=== PATIENT | male | born 1965 | race African-American/Black ===

== ENCOUNTER 2017-03-30 09:41 | Emergency (ER) | payer OTHER ==
[2017-03-30 09:56] LABS: #Basophils 0.1 thou/uL (0.0-0.2); #Eosinphils 0.2 thou/uL (0.0-0.7); #Monocytes 0.7 thou/uL (0.11-0.59); #Neutrophils 4.7 thou/uL (1.40-6.50); %Basophils 1.5 % (0.0-1.0); %Eosinophils 2.1 % (0.0-10.0); %Lymphocytes 34.4 % (21.0-51.0); %Monocytes 8.2 % (0.0-10.0); %Neutrophils 53.9 % (42.0-75.0); Hemoglobin 13.9 g/dL (14.0-18.0); Mean Corpuscular HGB CONC 31.8 g/dL (32.0-36.0); Mean Corpuscular Hemoglobin 28.5 pg (27.0-31.0); Mean Corpuscular Volume 89.4 fl (80.0-94.0); Mean Platelet Volume 6.3 fL (7.4-10.4); Platelet Count 225 thou/uL (130-400); RBC Distribution Width 13.1 % (11.5-14.5); Red Blood Cell (RBC) Count 4.87 mill/uL (4.70-6.10); White Blood Cell (WBC) Count 8.7 thou/uL (4.8-10.8)
[2017-03-30] MEDS ORDERED: Fentanyl 100 MCG/2 ML VIAL ONE (09:58)
[2017-03-30 10:12] LABS: ALT (SGPT) 11 U/L (8-55); AST (SGOT) 14 U/L (5-34); Alkaline Phosphatase 59 U/L (40-150); Anion Gap 14 mmol/L (10-20); BUN (Urea Nitrogen) 12 mg/dL (8.4-25.7); Bilirubin, Total 0.5 mg/dL (0.2-1.2); Calc. Creatinine Clearance 0 mL/min (70-130); Calcium 9.1 mg/dL (7.8-10.44); Carbon Dioxide 28 mmol/L (22-29); Chloride 103 mmol/L (98-107); Estimated GFR-MDRD Greater than 90; Globulin 3.5 g/dL (2.4-3.5); Glucose 128 mg/dL (70-105); Potassium 3.8 mmol/L (3.5-5.1); Protein, Total 7.5 g/dL (6.0-8.3); Sodium 141 mmol/L (136-145)
[2017-03-30 10:25] LABS: Alcohol Less than 10 mg/dL (Less than 10); Lipase 38 U/L (8-78)
[2017-03-30 10:29] LABS: CKMB 0.8 ng/mL (0-6.6)
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
[2017-03-30] MEDS ORDERED: Adacel (T-DAP) 0.5 ML VIAL ONE (11:14)
[2017-03-30] MEDS ORDERED: Ketorolac Tromethamine 30 MG/ML VIAL ONE (11:20)
[2017-03-30 11:47] LABS: Bilirubin Negative (Negative); Blood, Urine Negative (Negative); Clarity Clear (Clear); Glucose, Urine (Dipstick) Negative (Negative); Leukocyte Negative (Negative); Nitrite Negative (Negative); Protein, Urine (Dipstick) Negative (Neg-Trace); Specific Gravity, Urine 1.015 (1.005-1.030); Urobilinogen 0.2 mg/dL (0.2-1.0); pH, Urine 7.5 (5.0-9.0)
[2017-03-30 12:00] LABS: Amphetamine Not Detected (NotDetected); Barbiturates Screen Not Detected (NotDetected); Benzodiazepine Screen Not Detected (NotDetected); Cocaine Metabolite Screen Not Detected (NotDetected); Medtox Control Line Valid? VALID (VALID); Methadone Not Detected (NotDetected); Methamphetamine Not Detected (NotDetected); Opiate Screen Not Detected (NotDetected); Oxycodone Screen Not Detected (NotDetected); Phencyclidine (PCP) Not Detected (NotDetected); THC/Cannabinoid Screen Not Detected (NotDetected); Tricyclic Screen Not Detected (NotDetected)
== END 2017-03-30 12:21 | disposition home or self-care (01) ==
LOC: BURERS 09:41
DX: S06.9X1A Unspecified intracranial injury with loss of consciousness of 30 minutes or less, initial encounter (principal); S70.02XA Contusion of left hip, initial encounter; S60.212A Contusion of left wrist, initial encounter; I10 Essential (primary) hypertension; F41.9 Anxiety disorder, unspecified; F32.9 Major depressive disorder, single episode, unspecified; Z87.891 Personal history of nicotine dependence; Z23 Encounter for immunization; V03.99XA Pedestrian with other conveyance injured in collision with car, pick-up truck or van, unspecified whether traffic or nontraffic accident, initial encounter
CPT/HCPCS: 70450; 71260; 72125; 74177; 80053; 80306; 80307; 81003; 82553; 83690; 85025; 90471; 90715; 93005; 94760; 96361; 96374; 96375; A4216; J1885; J3010

== ENCOUNTER 2017-07-12 19:27 | Emergency (ER) | payer OTHER ==
[2017-07-12] MEDS ORDERED: Ondansetron ODT 4 MG TAB ONE (19:49)
[2017-07-12] MEDS ORDERED: Sucralfate 1 GM TAB PO SCH (20:00)
[2017-07-12 20:06] LABS: Bilirubin Negative (Negative); Blood, Urine Trace (Negative); Clarity Clear (Clear); Glucose, Urine (Dipstick) Negative (Negative); Leukocyte Negative (Negative); Nitrite Negative (Negative); Protein, Urine (Dipstick) Negative (Neg-Trace); Specific Gravity, Urine 1.025 (1.005-1.030); pH, Urine 6.5 (5.0-9.0)
[2017-07-12] MEDS ORDERED: Famotidine 20 MG TAB PO SCH (20:15)
[2017-07-12 20:16] LABS: Bacteria/HPF Rare-Few HPF (None Seen); RBC/HPF 0-3 HPF (0-3); Squamous Epithelial 0-3 HPF (0-3); WBC/HPF 0-3 HPF (0-3)
== END 2017-07-12 20:10 | disposition home or self-care (01) ==
LOC: BURERS 19:27
DX: S30.811A Abrasion of abdominal wall, initial encounter (principal); I10 Essential (primary) hypertension; F32.9 Major depressive disorder, single episode, unspecified; F41.9 Anxiety disorder, unspecified; Z87.891 Personal history of nicotine dependence; Z79.891 Long term (current) use of opiate analgesic; Z79.899 Other long term (current) drug therapy; V89.2XXA Person injured in unspecified motor-vehicle accident, traffic, initial encounter
CPT/HCPCS: 81003; 81015; 99284; Q0162

== ENCOUNTER 2017-07-25 00:58 | Emergency (ER) | payer OTHER | END 2017-07-25 01:25 | disposition home or self-care (01) | LOC: BURERS 00:58 | DX: M54.5 Low back pain (principal); G89.29 Other chronic pain; I10 Essential (primary) hypertension; F41.9 Anxiety disorder, unspecified; F32.9 Major depressive disorder, single episode, unspecified; Z79.899 Other long term (current) drug therapy; Z87.891 Personal history of nicotine dependence | CPT/HCPCS: 99283 ==

== ENCOUNTER 2017-08-14 02:09 | Emergency (ER) | payer OTHER ==
[2017-08-14] MEDS ORDERED: Ketorolac Tromethamine 30 MG/ML VIAL ONE (02:23)
== END 2017-08-14 02:39 | disposition home or self-care (01) ==
LOC: BURERS 02:09
DX: G89.29 Other chronic pain (principal); M54.5 Low back pain; I10 Essential (primary) hypertension; F41.9 Anxiety disorder, unspecified; Z87.891 Personal history of nicotine dependence
CPT/HCPCS: 96372; J1885

== ENCOUNTER 2017-09-02 10:46 | Emergency (ER) | payer OTHER ==
[2017-09-02] MEDS ORDERED: Ketorolac Tromethamine 30 MG/ML VIAL ONE (11:05)
== END 2017-09-02 11:08 | disposition home or self-care (01) ==
LOC: BURERS 10:46
DX: G89.4 Chronic pain syndrome (principal); M54.5 Low back pain; I10 Essential (primary) hypertension; F41.9 Anxiety disorder, unspecified; F32.9 Major depressive disorder, single episode, unspecified; Z87.891 Personal history of nicotine dependence
CPT/HCPCS: 96372; J1885

== ENCOUNTER 2017-09-09 00:25 | Emergency (ER) | payer OTHER ==
[2017-09-09] MEDS ORDERED: Ketorolac Tromethamine 30 MG/ML VIAL ONE (00:44)
== END 2017-09-09 01:01 | disposition home or self-care (01) ==
LOC: BURERS 00:25
DX: M54.5 Low back pain (principal); I10 Essential (primary) hypertension; G10 Huntington's disease; F41.9 Anxiety disorder, unspecified; F32.9 Major depressive disorder, single episode, unspecified; Z87.891 Personal history of nicotine dependence; Z79.891 Long term (current) use of opiate analgesic; Z79.899 Other long term (current) drug therapy
CPT/HCPCS: 96372; J1885

== ENCOUNTER 2017-09-18 02:54 | Emergency (ER) | payer OTHER ==
[2017-09-18] MEDS ORDERED: Ibuprofen 200 MG TAB ONE (03:09)
== END 2017-09-18 03:12 | disposition home or self-care (01) ==
LOC: BURERS 02:54
DX: M54.5 Low back pain (principal); I10 Essential (primary) hypertension; F41.9 Anxiety disorder, unspecified; F32.9 Major depressive disorder, single episode, unspecified; Z79.891 Long term (current) use of opiate analgesic; Z79.899 Other long term (current) drug therapy
CPT/HCPCS: 99283

== ENCOUNTER 2017-09-23 09:42 | Emergency (ER) | payer OTHER ==
[2017-09-23] MEDS ORDERED: Ketorolac Tromethamine 30 MG/ML VIAL ONE (10:12)
== END 2017-09-23 10:25 | disposition home or self-care (01) ==
LOC: BURERS 09:42
DX: G89.29 Other chronic pain (principal); M54.5 Low back pain; M25.531 Pain in right wrist; I10 Essential (primary) hypertension; F32.9 Major depressive disorder, single episode, unspecified; F41.9 Anxiety disorder, unspecified; Z79.899 Other long term (current) drug therapy
CPT/HCPCS: 96372; J1885

== ENCOUNTER 2017-09-28 03:50 | Emergency (ER) | payer OTHER | END 2017-09-28 04:10 | disposition home or self-care (01) | LOC: BURERS 03:50 | DX: M54.5 Low back pain (principal); G89.29 Other chronic pain; I10 Essential (primary) hypertension; F41.9 Anxiety disorder, unspecified; F32.9 Major depressive disorder, single episode, unspecified; Z87.891 Personal history of nicotine dependence; Z79.899 Other long term (current) drug therapy | CPT/HCPCS: 99283 ==

== ENCOUNTER 2017-10-03 08:11 | Emergency (ER) | payer OTHER ==
[2017-10-03] MEDS ORDERED: Ketorolac Tromethamine 30 MG/ML VIAL ONE (08:52)
== END 2017-10-03 09:02 | disposition home or self-care (01) ==
LOC: BURERS 08:11
DX: M54.5 Low back pain (principal); I10 Essential (primary) hypertension; F41.9 Anxiety disorder, unspecified; F32.9 Major depressive disorder, single episode, unspecified; Z87.891 Personal history of nicotine dependence; Z79.899 Other long term (current) drug therapy
CPT/HCPCS: 96372; J1885

== ENCOUNTER 2022-01-05 06:53 | Emergency (ER) | payer OTHER, SELFPAY | END 2022-01-05 08:34 | disposition home or self-care (01) | LOC: BURERS 06:53 | DX: S00.10XA Contusion of unspecified eyelid and periocular area, initial encounter (principal); I10 Essential (primary) hypertension; W01.198A Fall on same level from slipping, tripping and stumbling with subsequent striking against other object, initial encounter; Y93.01 Activity, walking, marching and hiking; Y92.009 Unspecified place in unspecified non-institutional (private) residence as the place of occurrence of the external cause; Z87.891 Personal history of nicotine dependence | CPT/HCPCS: 70450; 72125 ==

== ENCOUNTER 2023-06-19 12:07 | Outpatient (CLI) | payer OTHER | END 2023-06-19 12:08 | disposition home or self-care (01) | LOC: BURMANOR 12:07 | PROVIDERS: ATTEND Nurse Practitioner Family | DX: D58.2 Other hemoglobinopathies (principal) | CPT/HCPCS: 82274 ==

== ENCOUNTER 2024-07-11 14:09 | Emergency (ER) | payer OTHER ==
[2024-07-11] MEDS ORDERED: Acetaminophen 500 MG TAB ONE (14:54)
== END 2024-07-11 17:32 ==
LOC: BURERS 14:09
DX: S01.01XA Laceration without foreign body of scalp, initial encounter (principal); E11.9 Type 2 diabetes mellitus without complications; G10 Huntington's disease; I10 Essential (primary) hypertension; W01.0XXA Fall on same level from slipping, tripping and stumbling without subsequent striking against object, initial encounter; Z87.891 Personal history of nicotine dependence
CPT/HCPCS: 12001; 70450

== ENCOUNTER 2025-08-04 23:46 | Emergency (ER) | payer OTHER ==
[2025-08-05] MEDS ORDERED: Acetaminophen 500 MG TAB ONE (00:32)
== END 2025-08-05 00:54 ==
LOC: BURERS 23:46
DX: S00.03XA Contusion of scalp, initial encounter (principal); S40.012A Contusion of left shoulder, initial encounter; K21.9 Gastro-esophageal reflux disease without esophagitis; E11.9 Type 2 diabetes mellitus without complications; E78.5 Hyperlipidemia, unspecified; I10 Essential (primary) hypertension; Z79.899 Other long term (current) drug therapy; Z87.891 Personal history of nicotine dependence; Z79.84 Long term (current) use of oral hypoglycemic drugs; W01.198A Fall on same level from slipping, tripping and stumbling with subsequent striking against other object, initial encounter
CPT/HCPCS: 70450; 72125; G0390